=== PATIENT | female | born 1985 | race African-American/Black ===

== ENCOUNTER 2017-06-28 19:48 | Emergency (ER) | payer MEDICAID ==
[~2017-06-28] VITALS: Ht 162.6 cm; Wt 81.2 kg
[~2017-06-28 19:48] MED LIST: BENADRYL25 MG PO; CIPROFLOXACIN500 M2 ORAL; CLINDAMYCIN HC300 MG ORAL; IBUPROFEN600 MG ORAL; LEVAQUIN500 MG ORAL; NKM; PEPCID20 M1 *; PHENAZOPYRIDIN100 MG ORAL; PREDNISONE50 MG PO; PRENATAL FORMU1 EAC1 PO
[2017-06-28 20:15] VITALS: BP 122/78
[2017-06-28 21:45] VITALS: BP 126/76
[2017-06-28] MEDS ORDERED: Tetanus/Diptheria/Pertussis Vaccine 0.5ml Syr IM ONE (21:45)
[2017-06-28] MEDS ORDERED: IBUPROFEN600 MG ORAL (22:20)
[2017-06-28 22:30] VITALS: BP 126/76
--- NOTE | 2017-06-29 09:44 | Diagnostic Imaging Report ---
Indication: PAIN Technique: No IV contrast utilized, per trauma protocol. Spiral acquisitions obtained through the right knee Multiplanar reconstructions were generated. Total dose length product 556 mGycm. CTDIvol(s) 15 mGy. Radiation dose was minimized using automated exposure control Comparison: Plain radiographs of earlier the same day Findings: No acute fractures are demonstrated. No dislocations. The joint spaces are preserved. No evidence of joint effusion. There is slight thickening of the soft tissue anterior and lateral to the patella. Within the proximal tibial diaphysis, there is a mass which demonstrates soft tissue attenuation and peripheral possibly chondroid calcification. This measures 12 x 12 x 15 mm. Impression: No acute bony, Evidence of peripatellar soft tissue injury, as described 12 x 12 x 15 mm tumor within the proximal tibial diaphysis with chondroid calcification. Most likely an enchondroma, low-grade chondrosarcoma not completely excludable. Consider MRI for more specific characterization. Alternatively, if there are prior outside exams available for comparison, this would be useful to determine stability Findings are in agreement with the [facility] preliminary report provided overnight. Recommendation for followup discussed with Dr. Veronica in the emergency room at the time of interpretation. The CT scanner at [facility] is accredited by the [employer] and the scans are performed using protocols designed to limit radiation exposure to as low as reasonably achievable to attain images of sufficient resolution adequate for diagnostic evaluation.
--- NOTE | 2017-06-29 10:21 | Emergency Room Report ---
Physical Exam Vital Signs Date Time Temp Pulse Resp B/P (MAP) Pulse Ox O2 Delivery O2 Flow Rate FiO2 06/28/17 20:04 97.9 62 18 122/78 98 Room Air Medical Decision Making Diagnostic Impression: Primary Impression: Abrasion Additional Impression: Contusion of leg, right ER Course Dr Bosch called that [facility] read shows [id number] mass in proximal tibia And requires MRI followup I called Ms Alonso and spoke with her at 1020am 06/29/17 She understands need for MRI followup Will call her MD today Last Vital Signs Date Time Temp Pulse Resp B/P (MAP) Pulse Ox O2 Delivery O2 Flow Rate FiO2 06/28/17 22:30 97.9 84 16 126/76 98 Room Air Disposition: HOME, SELF-CARE Condition: Improved Scripts Ibuprofen* (MOTRIN*) 600 Mg Tablet 600 MG ORAL THREE TIMES A DAY, #30 TAB 0 Refills Prov: ROSEANNE KELLY M.D. 06/28/17 Referrals: STACEY MARAVILLA,REFERRING (PCP) Patient Instructions: Contusion Additional Instructions: PLEASE FOLLOW UP WITH YOUR DOCTOR IN 1 WEEK PLEASE RETURN IF YOU ARE EXPERIENCING EXTREME PAIN, IF YOU LEG SWELLING VERY TENSE OR SWOLLEN ALTAF HOOD M.D. Jun 29, 2017 10:21
--- NOTE | 2017-06-29 10:39 | Diagnostic Imaging Report ---
Indication: PAIN Technique: 2 views of the right tibia and fibula Comparison: none Findings: No acute fractures. No dislocations. No radiopaque foreign body demonstrated. 12 mm diameter isoattenuating lesion with chondroid calcifications is seen centrally within the proximal tibial diaphysis. Impression: No acute bony trauma 12 mm lesion of the proximal tibia with chondroid calcifications, likely an enchondroma. Please refer to CT report for more details
--- NOTE | 2017-06-29 10:40 | Diagnostic Imaging Report ---
Indication: PAIN Technique: 3 views of the right knee Comparison: None Findings:No suprapatellar effusion. No acute fracture. No dislocation. The joint spaces are preserved. 12 mm isoattenuating lesion with chondroid calcifications is seen in the proximal tibial medullary space Impression:No acute bony trauma Lesion in the proximal tibia, as described. Most likely an enchondroma. Please refer to CT report for more details
== END 2017-06-28 23:45 | disposition home or self-care (01) ==
LOC: EMR 23:40
DX: S80.11XA Contusion of right lower leg, initial encounter (principal); T14.8XXA Other injury of unspecified body region, initial encounter; W10.9XXA Fall (on) (from) unspecified stairs and steps, initial encounter; Y92.009 Unspecified place in unspecified non-institutional (private) residence as the place of occurrence of the external cause; Z23 Encounter for immunization; M89.9 Disorder of bone, unspecified
CPT/HCPCS: 90471; 90715; 99283

== ENCOUNTER 2017-11-28 10:00 | Emergency (ER) | payer MEDICAID ==
[~2017-11-28] VITALS: Ht 162.6 cm; Wt 86.2 kg
[2017-11-28] MEDS ORDERED: BACTRIM-DS1 EA ORAL (10:10)
[2017-11-28 10:13] VITALS: BP 110/73
[2017-11-28] MEDS ORDERED: CLINDAMYCIN HC300 MG ORAL (10:30)
[2017-11-28 10:37] VITALS: BP 110/73
--- NOTE | 2017-11-28 11:04 | Emergency Room Report ---
History of Present Illness General Chief Complaint: Skin Rash/Abscess Source: Patient Present Illness HPI 32-year-old female presenting with spider bite. Patient states that she was hit by a spider last Monday, she saw [employer]., they started her on Bactrim, she's been taking that for just states that now she has a HE rash to her bilateral legs from the medicine. No shortness of breath. Denies any fever chills. States that she has a bite to her back and 2 on her left thigh and states that one of them on her left thigh has been getting more red and more swollen. No other complaints Allergies: Coded Allergies: Shrimp (Unverified Allergy, Severe, Anaphylaxis, 05/02/14) MORPHINE (Verified Allergy, Intermediate, Itching, 08/29/14) noted on the er visit. PENICILLINS (Verified Allergy, Unknown, Anaphylaxis, 09/12/12) TOMATO (Verified Allergy, Unknown, Anaphylaxis, 09/12/12) Patient History Past Medical History: see triage record Past Surgical History: none Pertinent Family History: none Last Menstrual Period: 11/02/17 Reviewed Nursing Documentation: PMH: Agreed; PSxH: Agreed Nursing Documentation-PMH Hx Cardiac Problems: Yes - heart murmur Hx Asthma: Yes Hx Neurological Problems: No - Ovarian cyst Review of Systems All Other Systems: negative except mentioned in HPI Physical Exam Vital Signs Date Time Temp Pulse Resp B/P (MAP) Pulse Ox O2 Delivery O2 Flow Rate FiO2 11/28/17 10:05 98.2 91 17 110/73 100 Room Air 98.2 Sp02 EP Interpretation: reviewed, normal General Appearance: alert, GCS 15, non-toxic, mild distress Head: normocephalic, atraumatic Eyes: bilateral eye normal inspection, bilateral eye PERRL, bilateral eye EOMI ENT: normal ENT inspection, normal pharynx, normal voice, moist mucus membranes Neck: normal inspection, full range of motion, supple Respiratory: normal inspection, lungs clear, normal breath sounds, no respiratory distress, no retraction, no wheezing, speaking full sentences, chest symmetrical Cardiovascular #1: normal inspection, regular rate, rhythm, normal capillary refill Cardiovascular #2: 2+ radial (R), 2+ radial (L) Gastrointestinal: normal inspection, non tender, soft, non-distended, no guarding Musculoskeletal: normal inspection, back normal, normal range of motion, non- tender Neurologic: normal inspection, alert, oriented x3, responsive, motor strength/ tone normal, sensory intact, normal gait, speech normal Psychiatric: normal inspection, judgement/insight normal, memory normal Skin: warm/dry, well hydrated, normal turgor, other - Spider bite/insect bites noted one on right upper bacK, and to her left lower thigh, one bite has area of erythema about 4 x 4 centimeters, blanching, tender, no fluctuance noted on any of them Medical Decision Making Diagnostic Impression: Primary Impression: Insect bite Additional Impression: Cellulitis ER Course 32-year-old female with spider bite occurred last week, now more painful and more redness DDX: Infected spider bite/cellulitis No crepitus / pain out of proportion / rapid spreading for concern for nec fasc Plan: Antibiotics ER course: Remains nontoxic appearing. There has been no rapid spread of redness/swelling. Disposition: Patient is to be discharged to home on PO antibiotics. Clindamycin will be given as patient is allergic to penicillins and she was already taking Bactrim and may have had an allergic reaction to the Bactrim Strict precautions discussed with patients on when to return to the ED including fevers, chills, rapid spread of rash, persistent rash, extreme pain to extremity, which may indicate severe illness. Patient verbalizes understanding. Patient is instructed to follow up with primary care doctor OR come back to the ED in 48 hours for wound check. Patient agrees with plan. Please note that this Emergency Department Report was dictated using [employer] software architect technology software, occasionally this can lead to erroneous entry secondary to interpretation by the dictation equipment. Last Vital Signs Date Time Temp Pulse Resp B/P (MAP) Pulse Ox O2 Delivery O2 Flow Rate FiO2 11/28/17 10:37 98.2 91 17 110/73 100 Room Air 98.2 Disposition: HOME, SELF-CARE Condition: Improved Scripts Clindamycin Hcl (CLINDAMYCIN HCL) 300 Mg Capsule 300 MG ORAL THREE TIMES A DAY for 7 Days, #21 CAP Prov: Herminia Fasut M.D. 11/28/17 Referrals: [facility]/,REFERRING (PCP) Patient Instructions: Cellulitis, [id number] Herminia Faust M.D. November 28, 2017 11:04
== END 2017-11-28 11:03 | disposition home or self-care (01) ==
LOC: EMR 10:49
DX: S20.461A Insect bite (nonvenomous) of right back wall of thorax, initial encounter (principal); S70.362A Insect bite (nonvenomous), left thigh, initial encounter; L03.116 Cellulitis of left lower limb; L03.312 Cellulitis of back [any part except buttock and flank]; W57.XXXA Bitten or stung by nonvenomous insect and other nonvenomous arthropods, initial encounter; J45.909 Unspecified asthma, uncomplicated; Z88.0 Allergy status to penicillin; Z88.5 Allergy status to narcotic agent
CPT/HCPCS: 99283

== ENCOUNTER 2019-04-25 23:05 | Emergency (ER) | payer MEDICAID ==
[~2019-04-25] VITALS: Ht 162.6 cm; Wt 93.0 kg
[~2019-04-25 23:05] MED LIST changes: +BACTRIM-DS1 EA ORAL
--- NOTE | 2019-04-25 23:25 | NUR ---
ED Nurse Note: RECIEVED PT FROM HOME, AWAKE, ALERT AND ORIENTED X 4, PT HERE WITH C/O ABD PAIN WITH NAUSEA AND VOMITING SINCE 3 DAYS AFTER EATING BAD FOOD, PT STATES SHE FEELS WEAK NOW AND IS HERE TO CHECK, PT ALSO MAY THINK SHE IS AND WANTS INFO, PT GOWNED AND ASSISTED TO MONITORING.
--- NOTE | 2019-04-25 23:29 | Emergency Room Report ---
History of Present Illness General Chief Complaint: Nausea Source: Patient Present Illness HPI Patient presents with complaints of epigastric discomfort and burning reports that 3 days ago after eating something at work she had several episodes of vomiting Patient has also had diarrhea for the past 2 days Patient tried to drink some Gatorade earlier today however again continues to vomit Denies any fevers or chills denies any chest pain denies any rash Allergies: Coded Allergies: Shrimp (Unverified Allergy, Severe, Anaphylaxis, 05/02/14) MORPHINE (Verified Allergy, Intermediate, Itching, 08/29/14) noted on the er visit. PENICILLINS (Verified Allergy, Unknown, Anaphylaxis, 09/12/12) TOMATO (Verified Allergy, Unknown, Anaphylaxis, 09/12/12) Patient History Past Medical History: see triage record Last Menstrual Period: na Now: No : 4 Para: 4 Reviewed Nursing Documentation: PMH: Agreed; PSxH: Agreed Nursing Documentation-PMH Hx Cardiac Problems: Yes - heart murmur Hx Asthma: Yes Hx Neurological Problems: No - Ovarian cyst Review of Systems All Other Systems: negative except mentioned in HPI Physical Exam Vital Signs Date Time Temp Pulse Resp B/P (MAP) Pulse Ox O2 Delivery O2 Flow Rate FiO2 04/25/19 23:08 98.4 89 16 120/74 (89) 98 Room Air Sp02 EP Interpretation: reviewed, normal General Appearance: well appearing, no apparent distress Head: normocephalic, atraumatic Eyes: bilateral eye PERRL, bilateral eye EOMI ENT: hearing grossly normal, normal pharynx, TMs + canals normal, uvula midline Neck: full range of motion, supple, no meningismus, no bony tend Respiratory: lungs clear, normal breath sounds, no rhonchi, no respiratory distress, no retraction, no accessory muscle use Cardiovascular #1: normal peripheral pulses, regular rate, rhythm, no edema, no gallop, no JVD, no murmur Gastrointestinal: normal bowel sounds, non tender - On palpation however the patient points to the epigastric area for discomfort, soft, no mass, no organomegaly, non-distended, no guarding, no hernia, no pulsatile mass, no rebound Genitourinary: no CVA tenderness Musculoskeletal: normal inspection Neurologic: oriented x3, responsive, supervisor special effects III-XII nml as tested, motor strength/ tone normal, sensory intact Psychiatric: mood/affect normal Skin: no rash Lymphatic: normal inspection, no adenopathy Medical Decision Making Diagnostic Impression: Primary Impression: Nausea alone Additional Impressions: UTI (lower urinary tract infection) Nausea and vomiting in adult patient Nausea and vomiting in , new diagnosis ER Course With the patient's history and examination, multiple differentials considered, including but not limited to , ectopic , ovarian torsion, gastritis, cholecystitis, pancreatitis, appendicitis Patient's discomfort is epigastric also complains of increased nausea Patient's urine sample is positive for Patient reports that her last menstrual cycle was last month on the This is very early on in the cycle patient does not have any lower abdominal pain does not have any vaginal bleeding or spotting there is no Complaints to raise concerns of ectopic Patient will require Antibiotics for UTI and close outpatient follow-up Labs Test 04/25/19 23:20 04/25/19 23:35 Urine Color Pale yellow Urine Appearance Clear Urine pH 7 (4.5-8.0) Urine Specific [place] 1.005 (1.005-1.035) Urine Protein Negative (NEGATIVE) Urine Glucose (UA) Negative (NEGATIVE) Urine Ketones Negative (NEGATIVE) Urine Blood Negative (NEGATIVE) Urine Nitrite Negative (NEGATIVE) Urine Bilirubin Negative (NEGATIVE) Urine Urobilinogen Normal MG/DL (0.0-1.0) Urine Leukocyte Esterase 2+ (NEGATIVE) Urine RBC 0-2 /HPF (0 - 2) Urine WBC 5-10 /HPF (0 - 2) Urine Squamous Epithelial Cells Moderate /LPF (NONE/OCC) Urine Bacteria Few /HPF (NONE) Urine HCG, Qualitative Positive (NEGATIVE) White Blood Count 9.8 K/UL (4.8-10.8) Red Blood Count 4.01 M/UL (4.20-5.40) Hemoglobin 10.4 G/DL (12.0-16.0) Hematocrit 32.9 % (37.0-47.0) Mean Corpuscular Volume 82 FL (80-99) Mean Corpuscular Hemoglobin 25.9 PG (27.0-31.0) Mean Corpuscular Hemoglobin Concent 31.6 G/DL (32.0-36.0) Red Cell Distribution Width 15.0 % (11.6-14.8) Platelet Count 254 K/UL (150-450) Mean Platelet Volume 9.2 FL (6.5-10.1) Neutrophils (%) (Auto) 72.4 % (45.0-75.0) Lymphocytes (%) (Auto) 19.5 % (20.0-45.0) Monocytes (%) (Auto) 6.3 % (1.0-10.0) Eosinophils (%) (Auto) 0.7 % (0.0-3.0) Basophils (%) (Auto) 1.1 % (0.0-2.0) Sodium Level 138 MMOL/L (136-145) Potassium Level 3.7 MMOL/L (3.5-5.1) Chloride Level 103 MMOL/L (98-107) Carbon Dioxide Level 26 MMOL/L (21-32) Anion Gap 9 mmol/L (5-15) Blood Urea Nitrogen 5 mg/dL (7-18) Creatinine 0.8 MG/DL (0.55-1.30) Estimat Glomerular Filtration Rate > 60 mL/min (>60) Glucose Level 97 MG/DL (74-106) Calcium Level 8.7 MG/DL (8.5-10.1) Total Bilirubin 0.4 MG/DL (0.2-1.0) Aspartate Amino Transf (AST/SGOT) 18 U/L (15-37) Alanine Aminotransferase (ALT/SGPT) 12 U/L (12-78) Alkaline Phosphatase 94 U/L (46-116) Total Protein 8.2 G/DL (6.4-8.2) Albumin 3.6 G/DL (3.4-5.0) Globulin 4.6 g/dL Albumin/Globulin Ratio 0.8 (1.0-2.7) Lipase 169 U/L (73-393) Last Vital Signs Date Time Temp Pulse Resp B/P (MAP) Pulse Ox O2 Delivery O2 Flow Rate FiO2 04/25/19 23:08 98.4 89 16 120/74 (89) 98 Room Air Status: improved Disposition: HOME, SELF-CARE Condition: Improved Scripts Nitrofurantoin Monohyd/M-Cryst* (MACROBID 100 MG*) 100 Mg Capsule 100 MG ORAL EVERY 12 HOURS for 5 Days, CAP Prov: Nehemiah Amezquita DO 04/26/19 Referrals: [facility],REFERRING (PCP) Additional Instructions: Patient is provided with the discharge instructions notified to follow up with primary doctor in the next 2-3 days otherwise return to the er with any worsening symptoms. Please note that this report is being documented using [employer] technology. This can lead to erroneous entry secondary to incorrect interpretation by the dictating instrument. Nehemiah Amezquita DO Apr 25, 2019 23:29
[2019-04-25 23:30] LABS: APPEARANCE,URINE CLEAR; BILIRUBIN, URINE NEGATIVE (NEGATIVE); COLOR,URINE PALE YELLOW; GLUCOSE, URINE (UA) NEGATIVE (NEGATIVE); KETONES,URINE NEGATIVE (NEGATIVE); LEUKOCYTE ESTERASE ,URINE 2+ (NEGATIVE); NITRITE,URINE NEGATIVE (NEGATIVE); PH,URINE 7 (4.5-8.0); PROTEIN,URINE NEGATIVE (NEGATIVE); UROBILINOGEN,URINE NORMAL MG/DL (0.0-1.0)
[2019-04-25] MEDS ORDERED: Metoclopramide 10mg/2ml Inj IVP ONE (23:30)
[2019-04-25] MEDS ORDERED: DiphenhydrAMINE 50mg/ml Inj IVP ONE (23:30)
[2019-04-25 23:58] LABS: BASOPHILS % (AUTO) 1.1 % (0.0-2.0); EOSINOPHILS % (AUTO) 0.7 % (0.0-3.0); HEMATOCRIT 32.9 % (37.0-47.0); HEMOGLOBIN 10.4 G/DL (12.0-16.0); LYMPHOCYTES % (AUTO) 19.5 % (20.0-45.0); MEAN CORPUSCULAR VOLUME 82 FL (80-99); MONOCYTES % (AUTO) 6.3 % (1.0-10.0); NEUTROPHILS % (AUTO) 72.4 % (45.0-75.0); PLATELET COUNT 254 K/UL (150-450); RED BLOOD COUNT 4.01 M/UL (4.20-5.40); WHITE BLOOD COUNT 9.8 K/UL (4.8-10.8)
[2019-04-26 00:04] LABS: ANION GAP 9 mmol/L (5-15); BLOOD UREA NITROGEN 5 mg/dL (7-18); CALCIUM 8.7 MG/DL (8.5-10.1); CARBON DIOXIDE 26 MMOL/L (21-32); CHLORIDE 103 MMOL/L (98-107); CREATININE 0.8 MG/DL (0.55-1.30); POTASSIUM 3.7 MMOL/L (3.5-5.1); SODIUM 138 MMOL/L (136-145)
[2019-04-26 00:08] LABS: ALANINE AMINOTRANSFERASE 12 U/L (12-78); ALBUMIN 3.6 G/DL (3.4-5.0); ALBUMIN/GLOBULIN RATIO 0.8 (1.0-2.7); ALKALINE PHOSPHATASE 94 U/L (46-116); ASPARTATE AMINO TRANSFERASE 18 U/L (15-37); BILIRUBIN,TOTAL 0.4 MG/DL (0.2-1.0)
--- NOTE | 2019-04-26 00:30 | NUR ---
ED Nurse Note: PT WAS NOT MEDICTED RIGHT AWAY, SHE WANTED TO WAIT AFTER FINDING OUT POSITIVE , IV SITE PATENT, FLUIDS INFUSING, PT WILL LET STAFF KNOW WHEN SHE WANTS MEDS..
[2019-04-26 01:40] VITALS: BP 119/78
[2019-04-26] MEDS ORDERED: NITROFURANTOIN100 M2 ORAL (01:40)
--- NOTE | 2019-04-26 02:00 | NUR ---
ER DISCHARGE NOTE: Patient is cleared to be discharged per ERMD, pt is aox4, on room air, with stable vital signs. pt was given dc and prescription instructions, pt was able to verbalize understanding, pt id band and iv site removed without complications. pt is able to ambulate with steady gait. pt took all belongings.
[2019-04-26 02:04] VITALS: BP 120/74
== END 2019-04-26 02:04 | disposition home or self-care (01) ==
LOC: EMR 23:22
DX: O21.8 Other vomiting complicating pregnancy (principal); O23.41 Unspecified infection of urinary tract in pregnancy, first trimester; Z3A.00 Weeks of gestation of pregnancy not specified; Z88.0 Allergy status to penicillin; J45.909 Unspecified asthma, uncomplicated; R01.1 Cardiac murmur, unspecified; Z88.6 Allergy status to analgesic agent; Z91.018 Allergy to other foods; Z91.013 Allergy to seafood
CPT/HCPCS: 36415; 80053; 81003; 81025; 83690; 85025; 96361; 96374; 96375; J1200; J2765; Z7502; 99284